=== PATIENT | male | born 1995 | race Caucasian/White ===

== ENCOUNTER 2018-05-27 20:21 | Inpatient (IN) | payer SELFPAY ==
[2018-05-27] MEDS ORDERED: Ketorolac Tromethamine 30 MG/ML VIAL ONE (20:32)
[2018-05-27] MEDS ORDERED: Ondansetron PF 4 MG/2 ML Vial ONE (20:32)
[2018-05-27] MEDS ORDERED: Fentanyl 100 MCG/2 ML VIAL ONE (20:32)
[2018-05-27] MEDS ORDERED: CEFAZOLIN 1 GM VIAL ONE (20:36)
[2018-05-27] MEDS ORDERED: Adacel (T-DAP) 0.5 ML VIAL ONE (20:36)
--- NOTE | 2018-05-27 20:50 | RAD ---
CHEST ONE VIEW: 05/27/18 INDICATION: History of fall. FINDINGS: The lungs are clear. Cardiomediastinal silhouette is normal. No acute osseous abnormality is evident. IMPRESSION: No acute cardiopulmonary abnormality. POS: [facility]
[2018-05-27 20:52] LABS: #Lymphocytes 0.9 thou/uL (1.20-3.40); #Monocytes 0.5 thou/uL (0.11-0.59); #Neutrophils 8.9 thou/uL (1.40-6.50); %Basophils 0.1 % (0.0-1.0); %Eosinophils 0.2 % (0.0-10.0); %Monocytes 4.6 % (0.0-4.0); %Neutrophils 86.2 % (31.0-61.0); Hemoglobin 18.5 g/dL (14.0-18.0); Mean Corpuscular Hemoglobin 30.6 pg (25.0-35.0); Mean Corpuscular Volume 87.4 fL (78.0-98.0); Mean Platelet Volume 10.4 fL (7.4-10.4); Platelet Count 242 thou/uL (130-400); RBC Distribution Width 12.4 % (11.5-14.5); Red Blood Cell (RBC) Count 6.05 mill/uL (4.00-5.20); White Blood Cell (WBC) Count 10.3 thou/uL (4.8-10.8)
--- NOTE | 2018-05-27 21:10 | RAD ---
LEFT TIBIA AND FIBULA RADIOGRAPH TWO VIEWS 05/27/18 INDICATION: History of deformity and left leg trauma. FINDINGS: There are transversely oriented fractures involving the mid shaft of the left tibia and left fibula w ith displacement of the distal fracture fragments medially one full shaft width. There is fracture fr agment override of both the tibia and fibula of approximately 2.5 cm. No additional fracture is gross ly evident. There is soft tissue swelling surrounding the fracture site. IMPRESSION: Displaced both bone foreleg fracture. POS: [facility]
[2018-05-27 21:15] LABS: ALT (SGPT) 19 U/L (8-55); AST (SGOT) 26 U/L (5-34); Albumin 5.2 g/dL (3.5-5.0); Alkaline Phosphatase 131 U/L (Less than 750); Anion Gap 18 mmol/L (10-20); BUN (Urea Nitrogen) 13 mg/dL (8.9-20.6); Bilirubin, Total 0.9 mg/dL (0.2-1.2); Calc. Creatinine Clearance 0 mL/min (70-130); Calcium 10.3 mg/dL (7.8-10.44); Carbon Dioxide 24 mmol/L (22-29); Chloride 100 mmol/L (98-107); Estimated GFR-MDRD 79; Globulin 3.3 g/dL (2.4-3.5); Glucose 131 mg/dL (70-105); Magnesium 2.3 mg/dL (1.7-2.2); Potassium 3.5 mmol/L (3.5-5.1); Protein, Total 8.5 g/dL (6.0-8.3); Sodium 138 mmol/L (136-145)
--- NOTE | 2018-05-27 22:11 | RAD ---
LEFT FORELEG TWO VIEWS: 05/27/18 INDICATION: Post reduction. COMPARISON: Prior exam dated 05/27/18 at 7:33 p.m. FINDINGS: There has been improved alignment involving the distal both bone foreleg fracture. There is less sterling net apposition. There is mild residual displacement of the distal tibia fracture anteriorly one jaciel x width. The fibula fracture remains displaced medially one full shaft width. There is slight medial angulation at the fracture site. There has been interval placement of an overlying fiberglass splint. IMPRESSION: Interval reduction of the mid shaft left tibia fracture. POS: [facility]
--- NOTE | 2018-05-27 22:55 | HP ---
DATE OF ADMISSION: 05/27/2018 REQUESTING PHYSICIAN: Dr. Milligan. ATTENDING PHYSICIAN: Dr. Torres CONSULTATION: Orthopedics, Dr. Voss. HISTORY OF PRESENT ILLNESS: The patient is a 22-year-old man who was riding a horse at the [facility] n he was thrown off the horse and landed on his left leg. The patient is unsure if he was landed on his leg improperly or was kicked by the horse at the same time. Regardless, he had immediate pain an d deformity to his left lower extremity. He was unable to ambulate. He was brought by ground EMS to the Emergency Department where he underwent evaluation and examination and was noted to have a marke dly displaced left tibia and fibula fracture. The patient underwent a closed reduction with consciou s sedation which markedly improved his displacement and was placed in a splint. There was no evidenc e of neurovascular compromise or compartment syndrome. We were asked to admit the patient and obtain orthopedic consultations. ALLERGIES: None. CURRENT MEDICATIONS: None. PAST MEDICAL HISTORY: None. PAST SURGICAL HISTORY: Surgery to his right tib-fib with similar accident and a left shoulder surger y. SOCIAL HISTORY: The patient drinks socially. Denies drugs and uses tobacco products. REVIEW OF SYSTEMS: Ten-point review of systems negative, unless otherwise stated. PHYSICAL EXAMINATION: VITAL SIGNS: Blood pressure 133/88, heart rate 92, respirations 16, oxygen saturation 97% on room ai r, temperature is 98.7. GENERAL: The patient is resting comfortably in bed. He is still drowsy, recovering from his conscio us sedation medications, but otherwise he is able to answer questions and is appropriate. HEENT: Head is normocephalic, atraumatic. EYES: Extraocular motion intact. PERRLA bilaterally. E ARS: Atraumatic without discharge. NOSE: Atraumatic without discharge. OROPHARYNX: Clear. NECK: Nontender. Trachea is midline. No JVD. CHEST: Clear to auscultation with good inspiratory and expiratory effort. HEART: Regular rate and rhythm. ABDOMEN: Soft, flat and nontender with active bowel sounds. Pelvis is stable. EXTREMITIES: Left lower extremity is immobilized in a splint. He is neurovascularly intact x4. BACK: Atraumatic and nontender. LABORATORY DATA: White blood cell count 10.3, hemoglobin 18.5, hematocrit 52.8, platelets 242. Sodi um 138, potassium 3.5, chloride 100, CO2 24, BUN 13, creatinine 1.18, glucose 131. LFTs are unremark able. Magnesium 2.3. RADIOGRAPHS: 1. AP chest shows no acute cardiopulmonary abnormalities. 2. Two views of the left tibia and fibula show a displaced both bone fracture of his left foreleg. ASSESSMENT AND PLAN: 1. Status post rodeo accident. 2. Left tibia and fibula fracture. 3. Acute pain secondary to above. Plan will be to admit the patient to the surgical floor, make him n.p.o. after midnight and per zay adamson with Orthopedics he will be put on the schedule for operative intervention tomorrow. He will h ave IV pain control, pulmonary toilet, gastritis, mechanical VTE prophylaxis. The evaluation, examination, laboratory and radiographic findings will be discussed with Dr. Brian mendes ter this dictation.
[2018-05-27] MEDS ORDERED: Dextrose 50% Abboject 50 ML SYRINGE SLOW IVP PRN (23:25)
[2018-05-27] MEDS ORDERED: Ondansetron ODT 4 MG TAB PO PRN (23:25)
[2018-05-27] MEDS ORDERED: Promethazine HCl 25 MG/ML VIAL IM PRN ×2 (23:25)
[2018-05-27] MEDS ORDERED: Ondansetron PF 4 MG/2 ML Vial IVP PRN (23:25)
[2018-05-27] MEDS ORDERED: Dextrose 5% in Water 1,000 ML IV PRN (23:25)
[2018-05-27] MEDS: Sodium Chloride 0.9% 1,000 ML IV SCH (23:59)
[2018-05-28] MEDS: Acetaminophen 1,000 MG in Premix Bag 1 BAG IVPB SCH ×5 (00:02→23:04)
[2018-05-28] MEDS: Ketorolac Tromethamine 30 MG/ML VIAL IVP SCH ×4 (00:09→17:29)
[2018-05-28 00:27] VITALS: BMI 19.3
--- NOTE | 2018-05-28 05:18 | CON ---
DATE OF CONSULTATION: 05/27/2018 CHIEF COMPLAINT: Left leg. HISTORY OF PRESENT ILLNESS: Mr. Fischer is a 22-year-old male status post being kicked by horse today at the [place]. The patient has a significant history that a year ago, the patient sustained a tibia fracture treated in [place] and conservatively in a cast. The patient is currently resting comfortably in bed and wanted sedation per ER. His splint is clean, dry, and intact. No acute events. He is being admitted by Trauma. PAST MEDICAL HISTORY: None. PAST SURGICAL HISTORY: Left shoulder surgery, not specified; left tibia fracture, treated conservatively. MEDICATIONS: None. ALLERGIES: No known drug allergies. SOCIAL HISTORY: Positive for alcohol occasionally. Positive for chewing tobacco. 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 PHYSICAL EXAMINATION: VITAL SIGNS: Blood pressure 133/88, pulse 92, respirations 16, sats 97%, temperature 98.7. GENERAL: Alert and oriented male. No acute distress, resting comfortably in bed throughout the exam. EXTREMITIES: Left lower extremity, patient has brisk cap refill, soft compartments. There is an abrasion per report. The splint is clean, dry, and intact. The patient has motor intact. His sensation intact to the L4-S1 distribution. No pain with passive great toe flexion or extension. LABORATORY DATA: H&H 18 and 52, platelets 242. RADIOGRAPHS: Show tibia shaft and fibular shaft fracture, midshaft with little bit of comminution, but otherwise transverse in nature, status post reduction films with improved alignment. IMPRESSION: Left tibia shaft and fibular shaft fractures. ASSESSMENT AND PLAN: The patient will be made n.p.o. at midnight, have compartment checks overnight. The patient will be admitted for trauma. The patient will be n.p.o. on-call to the OR for intramedullary nailing of his left tibia in the morning. I discussed with patient the risks and benefits of surgery to include pain, scar, bleeding, infection, damage to vital structures, decreased range of motion or strength, continued pain despite surgical intervention, malunion, nonunion, rotational deformity, lengthening or shortening. I discussed with the patient would take some time before he weightbear on this limb. Discussed it will take some blood loss for him to heal. He understands this and understands also the need to stop chewing tobacco to improve the patient's outcome healing, he understands this also. The patient will follow up and plan will be to take him to the OR in the morning. ROSALBA
[2018-05-28 05:39] LABS: #Lymphocytes 1.8 thou/uL (1.20-3.40); #Monocytes 0.8 thou/uL (0.11-0.59); #Neutrophils 5.1 thou/uL (1.40-6.50); %Basophils 0.6 % (0.0-1.0); %Eosinophils 0.2 % (0.0-10.0); %Lymphocytes 22.6 % (28.0-48.0); %Monocytes 10.1 % (0.0-4.0); %Neutrophils 66.4 % (31.0-61.0); Hemoglobin 14.9 g/dL (14.0-18.0); Mean Corpuscular HGB CONC 34.9 g/dL (32.0-36.0); Mean Corpuscular Hemoglobin 30.7 pg (25.0-35.0); Mean Corpuscular Volume 88.1 fL (78.0-98.0); Mean Platelet Volume 10.5 fL (7.4-10.4); Platelet Count 182 thou/uL (130-400); RBC Distribution Width 12.3 % (11.5-14.5); Red Blood Cell (RBC) Count 4.86 mill/uL (4.00-5.20); White Blood Cell (WBC) Count 7.8 thou/uL (4.8-10.8)
[2018-05-28 06:14] LABS: Anion Gap 12 mmol/L (10-20); BUN (Urea Nitrogen) 10 mg/dL (8.9-20.6); Calc. Creatinine Clearance 108 mL/min (70-130); Calcium 8.5 mg/dL (7.8-10.44); Carbon Dioxide 24 mmol/L (22-29); Chloride 107 mmol/L (98-107); Estimated GFR-MDRD Greater than 90; Glucose 105 mg/dL (70-105); Potassium 3.5 mmol/L (3.5-5.1); Sodium 139 mmol/L (136-145)
[2018-05-28] MEDS: Famotidine 20 MG TAB PO SCH ×2 (08:17→20:03)
[2018-05-28] MEDS: Sodium Chloride 0.9% 1,000 ML IV SCH ×2 (08:17→15:51)
[2018-05-28] MEDS ORDERED: Ondansetron PF 4 MG/2 ML Vial ONE (09:29)
[2018-05-28] MEDS ORDERED: Lidocaine 1% PF 5 ML VIAL ONE (09:29)
[2018-05-28] MEDS ORDERED: Glycopyrrolate 0.2 MG/ML 5 ML SYRINGE ONE (09:29)
[2018-05-28] MEDS ORDERED: Ketorolac Tromethamine 30 MG/ML VIAL ONE (09:29)
[2018-05-28] MEDS ORDERED: PROPOFOL 200 MG/20 ML VIAL ONE (09:29)
[2018-05-28] MEDS ORDERED: Dexamethasone 20 MG/5 ML VIAL ONE (09:29)
[2018-05-28] MEDS ORDERED: CEFAZOLIN/Water 2 GM/20 ML SYRINGE ONE (10:29)
[2018-05-28] MEDS ORDERED: Midazolam HCl 2 mg/2 ml Vial ONE (11:00)
[2018-05-28] MEDS ORDERED: Fentanyl 250 MCG/5 ML VIAL ONE (11:00)
--- NOTE | 2018-05-28 12:49 | RAD ---
INTRAOPERATIVE FLUOROSCOPY: History ORIF left tibia. EXOPSURE: 176.6 seconds. 6.76 mGy. FINDINGS: Six intraoperative images demonstrate placement of an intramedullary lele traversing a tibia fracture. Lucency is still noted. Alignment is near-anatomic. A single proximal and single distal interlock ing screws are identified. Fibula fracture is identified. IMPRESSION: Fluoroscopy as above. POS: [facility]
[2018-05-28] MEDS ORDERED: Promethazine HCl 25 MG/ML VIAL SLOW IVP PRN (13:29)
[2018-05-28] MEDS ORDERED: Ondansetron HCl/PF 4 MG/2 ML Vial IVP PRN (13:29)
[2018-05-28] MEDS ORDERED: Promethazine HCl 25 MG/ML VIAL IM PRN (13:29)
[2018-05-28] MEDS ORDERED: CEFAZOLIN 2 GM in Sodium Chloride 0.9% 100 ML IVPB SCH (14:00)
[2018-05-28] MEDS: CEFAZOLIN/Water 2 GM/20 ML SYRINGE SLOW IVP SCH (17:30)
[2018-05-28] MEDS ORDERED: Cyclobenzaprine 10 MG TAB PO PRN (19:03)
[2018-05-28] MEDS ORDERED: traMADol HCl 50 MG TAB PO PRN ×2 (19:03)
[2018-05-29] MEDS: CEFAZOLIN/Water 2 GM/20 ML SYRINGE SLOW IVP SCH (01:49)
[2018-05-29] MEDS: Ibuprofen 800 MG TAB PO SCH ×2 (05:38→13:22)
[2018-05-29] MEDS: Acetaminophen 500 MG TAB PO SCH ×2 (05:38→13:22)
[2018-05-29 05:42] LABS: Hemoglobin 12.9 g/dL (14.0-18.0); Mean Corpuscular HGB CONC 34.3 g/dL (32.0-36.0); Mean Corpuscular Hemoglobin 30.4 pg (25.0-35.0); Mean Corpuscular Volume 88.7 fL (78.0-98.0); Mean Platelet Volume 10.9 fL (7.4-10.4); Platelet Count 175 thou/uL (130-400); RBC Distribution Width 12.2 % (11.5-14.5); Red Blood Cell (RBC) Count 4.23 mill/uL (4.00-5.20)
[2018-05-29] MEDS: Famotidine 20 MG TAB PO SCH (08:36)
[2018-05-29 11:36] VITALS: BP 118/73; TEMP 98.3
--- NOTE | 2018-05-29 13:38 | OP ---
DATE OF PROCEDURE: 05/28/2018 PREOPERATIVE DIAGNOSES: Left tibia shaft fracture, fibula shaft fracture. POSTOPERATIVE DIAGNOSES: Left tibia shaft fracture, fibula shaft fracture. PROCEDURES PERFORMED: 1. Intramedullary nailing of left tibia shaft fracture, fibula fracture. 2. Short leg splint. STAFF: Nav Voss M.D. LEAD SYSTEMS ENGINEER: Eileen Walton PA-C STAFF: MD Anastasia. ANESTHESIA: Patient received a general endotracheal intubation. ESTIMATED BLOOD LOSS: 250 mL TOURNIQUET TIME: None. IMPLANTS: Synthes 11 x 330 mm titanium cannulated nail with two 5-0 titanium locking screws. ANTIBIOTICS: Ancef 2 grams. COMPLICATIONS: None. HISTORY OF PRESENT ILLNESS: Mr. Fischer is a 22-year-old male who had a tibia fracture about a year ago. The patient was kicked by horse and had a tibia shaft fracture today. The patient was seen last night and had tibia fracture. I discussed the risks and benefits of intramedullary nailing with left tibia to include pain, scar, bleeding, infection, damage to vital structures, decreased range of motion or strength, function, nonunion, malunion, rotational deformity , shortening. I discussed with the patient the risks and benefits of surgery to include loss of life or limb, DVT. The patient understood all these risks and benefits and elected to proceed. DESCRIPTION OF PROCEDURE: Time out was performed designating the patient's left lower extremity as the operative site based on sight, consents and markings. After the timeout, the patient's left lower extremity was prepped and draped in a sterile fashion. I made an anterior incision on the knee down through skin to the patella. We split the patellar tendon, taking down the paratenon. We placed our guide pin, we made three passes to get our final starting point. Being happy on AP and lateral radiographs, we are starting with opening reamer. I used the finger to reduce the fracture into place, placed our guidewire down, reamed up to a 12.5 mm canal and placed an 11 x 330 mm nail. Looking under fluoroscopic guidance, I feel that it was buried deep enough in the proximal tibia, also looked to ensure that the fracture was reduced. We placed a single dynamic locking screw proximally. We then compressed the fracture rotationally until it is in position. We then made an incision laterally, opened, drilled. As we are drilling, there was a flush of blood and I was unsure if we had a vessel within the bone or if there was a portion of the saphenous vein which was had. We drilled, we controlled it and we put our screw in. Went back and he noted with still bleeding. We extended the incision proximally and distally and could not find a specific source of the bleeding, held pressure and closed with 2-0 and trisha the medial incision and the anterior midline incision with 0, 2-0 and trisha. We washed out the joint. The patient will be touchdown on weightbearing. He was placed in a posterior splint and will get 24 hours of antibiotics and will be discharged when he is comfortable potentially tomorrow. ROSALBA
--- NOTE | 2018-05-29 23:05 | DIS ---
DATE OF ADMISSION: 05/27/2018 DATE OF DISCHARGE: 05/29/2018 ADMITTING PHYSICIAN: Dr. Torres. DISCHARGING PHYSICIAN: Dr. Green. CONSULTANTS: Dr. Voss with Orthopedic Surgery. ADMITTING DIAGNOSES: 1. Status post rodeo accident. 2. Left tibia and fibula fracture. DIAGNOSES ON DISCHARGE: 1. Status post rodeo accident. 2. Left tibia and fibula fracture. OPERATIONS PERFORMED: Intramedullary nailing of left tibia shaft and fibular fractures. Surgery was performed on 05/28/[address] Voss. Please see a separate dictation for the operative report. HISTORY AND HOSPITAL COURSE: This is a 22-year-old man who suffered injuries from a rodeo accident. Workup was consistent with acute closed left tibia and fibular fractures. The patient underwent repair of the said fractures, 24 hours following admission. Today, the patient is examined postoperative day #1, he is ambulating using crutches. He was able to do stairs using crutches. He reports adequate pain control. He tolerates general diet, having normal bowel and urinary function. The patient has remained hemodynamically stable and afebrile through this hospitalization. Clinical examination today reveals a well man who is definitely in no acute distress and wishes to go home. DISCHARGE INSTRUCTIONS: He has been discharged today with the following instructions: He follows up with Dr. Voss in the [facility] in 10 days. He requires no further followup from this Trauma Surgery standpoint except for as needed. He has been given a prescription for analgesics provided by Dr. Voss. He is to call with any questions or problems including exacerbation of pain, fever in excess of 101 degrees Fahrenheit, or intolerance to oral intake. Instructions given to the patient in presence of his nurse. The patient indicates understanding of the information given. I answered all his questions. The patient has expressed gratitude for the care rendered to him during this hospitalization and surgery. ROSALBA
== END 2018-05-29 14:34 | disposition home or self-care (01) | DRG 494 ==
LOC: ERS 20:21 → SURG A 23:19
PROVIDERS: ADMIT Orthopaedic Surgery; ATTEND Orthopaedic Surgery
PROC: 0QSH06Z Reposition Left Tibia with Intramedullary Internal Fixation Device, Open Approach (ICD-10-PCS; principal; 2018-05-28)
DX: S82.202A Unspecified fracture of shaft of left tibia, initial encounter for closed fracture (principal); S82.402A Unspecified fracture of shaft of left fibula, initial encounter for closed fracture; F17.220 Nicotine dependence, chewing tobacco, uncomplicated; G89.11 Acute pain due to trauma; V80.918A Animal-rider injured in other transport accident, initial encounter
CPT/HCPCS: 27752; 36415; 71045; 76000; 80048; 80053; 83735; 85025; 85027; 90471; 90715; 96365; 96374; 96375; 99152; 99153; C1713; C1769; G0390; G8978-GP-CJ; G8979-GP-CJ; G8980-GP-CJ; G8987-GO-CI; G8988-GO-CI; G8989-GO-CI; J0131; J0690; J1100; J1885; J2001; J2250; J2270; J2405; J2704; J3010